=== PATIENT | male | born 1975 | race Caucasian/White ===

== ENCOUNTER 2019-02-08 11:11 | Emergency (ER) | payer SELFPAY ==
[~2019-02-08] VITALS: Ht 160 cm; Wt 78.0 kg
[~2019-02-08 11:11] MED LIST: AMOX500T2 PO; ASCO-339 PO; FOLI-43 PO; HYDR-519 PO; LACT10SO7 PO; MULT-783 PO; THIA100T13 PO; ZINC220T PO
[2019-02-08 12:30] VITALS: BP 116/77
== END 2019-02-08 14:41 | disposition home or self-care (01) ==
LOC: ER 11:11
DX: M25.571 Pain in right ankle and joints of right foot (principal); Z79.899 Other long term (current) drug therapy; Z98.890 Other specified postprocedural states
CPT/HCPCS: 73610; 93971; 99284; Z7610